=== PATIENT | female | born 1980 | race Caucasian/White ===

== ENCOUNTER → 2024-01-05 | Outpatient (CLI) | payer BC, SELFPAY | END | disposition home or self-care (01) | DX: R92.8 Other abnormal and inconclusive findings on diagnostic imaging of breast (principal) | CPT/HCPCS: 76642; 77065 ==

== ENCOUNTER → 2025-02-14 | Outpatient (CLI) | payer BC, SELFPAY ==
--- NOTE | 2025-02-14 13:59 | US_ITS ---
PROCEDURE: BREAST COMPLETE UNILATERAL N/A REASON FOR EXAM: F, Age 45 y/o , ABD MAMM 45-year-old female presents with right breast pain. COMPARISON: Mammogram 01/20/2025, 12/17/2023. Ultrasound 01/05/2024. TECHNIQUE: Procedure Code: USBRU Modality: US Procedure: BREAST COMPLETE UNILATERAL FINDINGS: Ultrasound performed of the area of patient's reported pain in the retroareolar and upper-outer right breast demonstrates a few mildly dilated ducts in the retroareolar right breast. Otherwise, there are no suspicious solid masses or abnormal cystic elements. US/Breast Limited Unilateral IMPRESSION: 1. Benign dilated ducts in the retroareolar right breast. 2. There are no suspicious findings to account for the patient's right breast pain. Clinical management is recommended. Consider bilateral breast MRI for further evaluation if the pain continues. Co ntinue annual screening mammography. BI-RADS 2: BENIGN RECOMMENDATION: OTHER Reading Location: [id number]
== END | disposition home or self-care (01) ==
LOC: OPBI 13:56
PROVIDERS: Referring Provider Family Medicine; Visit Provider Family Medicine
DX: N64.4 Mastodynia (principal); R92.8 Other abnormal and inconclusive findings on diagnostic imaging of breast
CPT/HCPCS: 76642